=== PATIENT | female | born 1970 | race Caucasian/White ===

== ENCOUNTER 2022-01-14 16:49 | Emergency (ER) | payer BC, SELFPAY ==
--- NOTE | ~2022-01-14 | XR_ITS ---
EXAMINATION: XR chest 2V EXAM DATE: 01/14/2022 17:40 INDICATION: cough fever TECHNIQUE: Frontal and lateral projections of the chest obtained and reviewed. There is no prior nolberto dy for comparison. FINDINGS: The lungs are clear. There are no pleural effusions. The cardiomediastinal silhouette is within normal limits. There is no pneumothorax suspected. The bones and soft tissues are unremarkab le. IMPRESSION: No acute cardiopulmonary findings. Reviewed, dictated and finalized at location [facility]
[2022-01-14 17:09] VITALS: BP 117/72; PULSE 113; RESP 20; TEMP 38.3; O2SAT 97
--- NOTE | 2022-01-14 17:20 | ED.URI ---
HPI - URI/Sore Throat General Chief Complaint: Upper Respiratory Infection Stated Complaint: Cough,Congestion,Sore Throat,Nausea Source: patient and RN notes reviewed Mode of arrival: ambulatory History of Present Illness HPI Narrative: This is a 51-year-old female who presented to urgent care with complaints of shortness of breath, nasal and chest congestion, shortness of breath, sneezing, uncontrollable cough, that is productive with yellow-greenish sputum, nausea and vomiting,. Patient did note that on Tuesday her Fitbit noted that her heart rate was in the 120s. She denies any heart palpitations. She did note a low-grade fever of 99.2 she has been taking [id number] cold and flu medication along with Tylenol. The patient denies CP, palpitation, extremity numbness, lightheadedness, dizziness, constipation, and diarrhea, Related Data Home Medications Medication Instructions Recorded Confirmed cyclosporine [Restasis] 2 drp EACH EYE DAILY 01/14/22 01/14/22 ergocalciferol (vitamin D2) 1,250 mcg PO WEEKLY 01/14/22 01/14/22 estradiol-norethindrone acet 1 tablet PO DAILY 01/14/22 01/14/22 folic acid 1 mg PO DAILY 01/14/22 01/14/22 methotrexate sodium 2.5 mg PO BID 01/14/22 01/14/22 trazodone 50 mg PO HS 01/14/22 01/14/22 Allergies Allergy/AdvReac Type Severity Reaction Status Date / Time No Known Allergies Allergy Verified 01/14/22 17:00 Review of Systems Review of Systems: A 14 organ system Review of Systems was performed and pertinent positives included in the HPI, otherwise remaining ROS is negative. Exam Narrative: GENERAL: Ill appearance, in no apparent distress. HEAD: normocephalic, atraumatic. EYES: PERRL. Sclera clear/white. Vision is grossly intact. EARS: External ears normal, auditory canals clear and without drainage, TMs normal without perforation. Hearing grossly intact. NOSE: External nose normal with no obvious nasal discharge, nares without redness, no rhinorrhea. THROAT: Mucous membranes moist, posterior pharynx clear. NECK: Neck supple, non-tender without lymphadenopathy, masses or thyromegaly. CARDIOVASCULAR: Regular rate and rhythm without murmurs, gallops, or rubs. RESPIRATORY: Clear to auscultation. Breath sounds equal bilaterally. No wheezes, rales, or rhonchi. GASTROINTESTINAL: Abdomen soft, non-tender, nondistended. Bowel sounds are active. No hepato-splenomegaly, or palpable masses. No guarding. SKIN: warm, intact with no suspicious lesions or rash, good texture and turgor. NEURO: awake, alert, and oriented to person, place and time. There were no obvious focal neurologic abnormalities. Steady gait EXTREMITIES: Normal range of motion. No edema. No calf tenderness. Negative Homans sign bilaterally. BACK: Nontender without deformity or crepitance. No flank tenderness. Course Course Emergency Course: Patient will be treated for influenza with Oseltamivir, Medrol pack, Symbicort, albuterol, Tessalon Perles, guaifenesin, and Zofran Level of Care: Express Care Visit Vital Signs Vital signs: Vital Signs Temperature 100.9 F H 01/14/22 17:09 Pulse Rate 113 H 01/14/22 17:09 Respiratory Rate 20 01/14/22 17:09 Blood Pressure 117/72 01/14/22 17:09 Pulse Oximetry 97 01/14/22 17:09 Temperature 100.9 F H 01/14/22 17:09 Pulse Rate 113 H 01/14/22 17:09 Respiratory Rate 20 01/14/22 17:09 Blood Pressure 117/72 01/14/22 17:09 Pulse Oximetry 97 01/14/22 17:09 MDM - URI/Sore Throat Differential Diagnosis Differential diagnosis: Likely upper respiratory infection, viral infection, bronchitis, influenza and pharyngitis Discharge Plan Discharge Clinical Impression: Influenza Patient Disposition: Home, Self-Care Condition: Stable Instructions: Antibiotic Form Additional Instructions: This is a viral illness, no antibiotic is needed at this time. Treatment is aimed toward your specific symptoms. You must treat your symptoms in order to feel better while the viru
== END 2022-01-14 17:48 | disposition home or self-care (01) ==
PROVIDERS: Emergency Provider Nurse Practitioner; PCP Family Medicine Sports Medicine
DX: J10.1 Influenza due to other identified influenza virus with other respiratory manifestations (principal); Z20.822 Contact with and (suspected) exposure to COVID-19
CPT/HCPCS: 71046; 87426; 87804; 99213; C9803; G0463